=== PATIENT | female | born 1990 | race American Indian/Alaskan Native ===

== ENCOUNTER 2016-10-13 17:51 | Emergency (ER) | payer BC ==
[2016-10-13 18:24] VITALS: BMI 24.9
[2016-10-13 18:31] VITALS: O2SAT 100
[2016-10-13] MEDS ORDERED: Sodium Chloride 0.9% 1,000 ML IV ONE ×2 (19:31→19:32)
--- NOTE | 2016-10-13 19:32 | C.PDOC ---
History Of Present Illness 25 year old female who presents to the ER with a complaint of abdominal pain, nausea, and vomiting over the past week. Patient is currently 12 weeks ; she reports a Hx of abdominal surgery for an acute obstruction. Denies diarrhea, dysuria, or vaginal bleeding. Chief Complaint (Nursing): Dizziness/Lightheaded History Per: Patient History/Exam Limitations: no limitations Onset/Duration Of Symptoms: Days Current Symptoms Are (Timing): Still Present Activity At Onset Of Symptoms: Other (Not known) Seizure Or Post-ictal Symptoms: None Fall Associated With With Symptoms: No Recent travel outside of the [place]: No Past Medical History Reviewed: Historical Data, Nursing Documentation, Vital Signs Vital Signs: Last Vital Signs Temp 98.1 F 10/13/16 19:40 Pulse 86 10/13/16 19:40 Resp 18 10/13/16 19:40 BP 116/78 10/13/16 19:40 Pulse Ox 100 10/13/16 22:52 - Medical History PMH: No Chronic Diseases - [facility] Procedures OTH LYSIS-PERITONEAL ADHES (09/03/13) OTHER HERNIA REPAIR (09/03/13) Family History: States: Unknown Family Hx - Social History Hx Tobacco Use: No Hx Alcohol Use: No Hx Substance Use: No - Immunization History Hx Influenza Vaccination: No Hx Pneumococcal Vaccination: No Review Of Systems Constitutional: Negative for: Fever, Chills Gastrointestinal: Positive for: Nausea, Vomiting, Abdominal Pain. Negative for : Diarrhea Genitourinary: Negative for: Dysuria, Hematuria, Vaginal Bleeding Physical Exam - Physical Exam Appears: Non-toxic, No Acute Distress Skin: Normal Color, Warm, Dry Head: Atraumatic, Normacephalic Oral Mucosa: Moist Chest: Symmetrical, No Tenderness Cardiovascular: Rhythm Regular, No Murmur Respiratory: Normal Breath Sounds, No Rales, No Rhonchi, No Wheezing Gastrointestinal/Abdominal: Soft, Tenderness (To mid and LLQ area), No Guarding , No Rebound Neurological/Psych: Oriented x3, Normal Speech, Normal Cognition ED Course And Treatment - Laboratory Results Result Diagrams: 10/13/16 20:16 10/13/16 20:16 O2 Sat by Pulse Oximetry: 100 (Room air) Pulse Ox Interpretation: Normal - CT Scan/US Abdominal US Other Rad Studies (CT/US): Read By Radiologist, Radiology Report Reviewed CT/US Interpretation: EXAM: US Abdomen Complete. CLINICAL HISTORY: 25 years old, female; Pain; Abdominal pain; ; Additional info: Abd pain. TECHNIQUE: Real-time ultrasound of the abdomen (complete) with image documentation. EXAM DATE/TIME: Exam ordered 10/13/2016 7:28 PM. COMPARISON: No relevant prior studies available. FINDINGS: Liver: Equivocal fatty liver. No intrahepatic bile duct dilation. No definite mass. Gallbladder: Unremarkable. No gallstones. Common bile duct: Unremarkable as visualized. No stones. No dilation. Pancreas: Unremarkable as visualized. Kidneys: Unremarkable. No stones. No solid mass. No hydronephrosis. Spleen: Spleen is normal. Probable splenule adjacent to the left kidney could be compared with. prior imaging when available. Aorta: Unremarkable. No aneurysm. Inferior vena cava: Unremarkable. IMPRESSION: No acute findings Pelvic US Other Rad Studies (CT/US): Read By Radiologist, Radiology Report Reviewed CT/US Interpretation: EXAM: US Uterus, Limited. CLINICAL HISTORY: 25 years old, female; Pain; complicated by abdominal or pelvic pain; Generalized. abdominal pain; First trimester; Gestational age or lmp: [id number] ; ; Additional info: Abd. pain. TECHNIQUE: Real-time ultrasound of the maternal uterus (limited) with image documentation. EXAM DATE/TIME : Exam ordered 10/13/2016 7:28 PM. COMPARISON: No relevant prior studies available. FINDINGS: Fetus: An intrauterine is identified of approximately 12 weeks and 0 day gestation. Heart. rate 131 beats minute was documented. The crown-rump length is 5.3 cm. Position: Variable positioning of the fetus. Placenta: Posterior low-lying placenta. Cervix: Closed cervix measures 3.7 cm. Free fluid: Minimal free fluid is noted in the pelvis. IMPRESSION: An intrauterine is identified of approximately 12 weeks and 0 day gestation. Heart rate. 131 beats minute was documented. The crown- rump length is 5.3 cm. Progress Note: Blood work, urinalysis, abd US, and pelvic US. Zofran and IV fluids ordered. Disposition Counseled Patient/Family Regarding: Diagnosis - Disposition Referrals: [facility] [Outside] Disposition: HOME/ ROUTINE Disposition Time: 22:50 Condition: STABLE Prescriptions: Ondansetron ODT [Zofran ODT] 4 mg PO BID #7 odt Instructions: Hyperemesis Gravidarum (ED) Forms: [facility] (Liberian) - POA Present On Arrival: None - Clinical Impression Clinical Impression: Vomiting affecting - Scribe Statement The provider has reviewed the documentation as recorded by the Scribalvaro Ricketts All medical record entries made by the Scribe were at my direction and personally dictated by me. I have reviewed the chart and agree that the record accurately reflects my personal performance of the history, physical exam, medical decision making, and the department course for this patient. I have also personally directed, reviewed, and agree with the discharge instructions and disposition.
[2016-10-13 20:27] LABS: BASO % 0.4 % (0.0-2.0); EOS # 0.1 K/uL (0.0-0.7); HEMATOCRIT 31.5 % (34.0-47.0); LYMPH # 2.2 K/uL (1.0-4.3); LYMPH % 38.3 % (20.0-40.0); MEAN CORPUSCULAR HEMOGLOBIN 29.4 pg (27.0-31.0); MEAN CORPUSCULAR HGB CONC 33.9 g/dL (33.0-37.0); MEAN PLATELET VOLUME 8.7 fL (7.2-11.7); MONO # 0.4 K/uL (0.0-0.8); MONO % 6.5 % (0.0-10.0); RED CELL DISTRIBUTION WIDTH 12.5 % (11.5-14.5); WHITE BLOOD COUNT 5.8 K/uL (4.8-10.8)
[2016-10-13 20:31] LABS: MEAN CELL VOLUME 86.6 fL (81.0-99.0)
[2016-10-13 20:40] LABS: CHLORIDE 102 mmol/L (98-107)
[2016-10-13 20:41] LABS: POTASSIUM 3.6 mmol/L (3.6-5.2); SODIUM 134 mmol/L (132-148)
[2016-10-13 20:43] LABS: AST/SGOT 23 U/L (14-36); BILIRUBIN,TOTAL 0.4 mg/dL (0.2-1.3); CARBON DIOXIDE 20 mmol/L (22-30); GFR AFRICAN-AMERICAN > 60; TOTAL PROTEIN 6.8 g/dL (6.3-8.3)
[2016-10-13 20:44] LABS: ALKALINE PHOSPHATASE 52 U/L (38-126); ALT/SGPT 28 U/L (9-52); BLOOD UREA NITROGEN 7 mg/dL (7-17); CALCIUM 8.7 mg/dl (8.6-10.4); GLUCOSE,RANDOM 75 mg/dL (65-105)
[2016-10-13 22:39] LABS: RBC URINE 1 /hpf (0-3); URINE BACTERIA RARE (<OCC); URINE BILIRUBIN NEGATIVE (NEGATIVE); URINE BLOOD NEGATIVE (NEGATIVE); URINE COLOR Yellow (YELLOW); URINE GLUCOSE (UA) NORMAL (Normal); URINE KETONE 2+ mg/dL (NEGATIVE); URINE LEUKOCYTE ESTERASE NEG Leu/uL (Negative); URINE PROTEIN NEGATIVE (NEGATIVE); WBC URINE 3 /hpf (0-5)
[2016-10-13 23:05] VITALS: BP 105/51; PULSE 82; RESP 16; TEMP 98.3
--- NOTE | 2016-10-14 08:30 | US ---
HISTORY: Abdominal pain COMPARISON: CT abdomen and pelvis from 09/03/2013. TECHNIQUE: Grayscale imaging was performed. FINDINGS: LIVER: Measures 13.5 cm. There is diffuse increased echogenicity of the liver parenchyma. No mass. No intrahepatic bile duct dilatation. GALLBLADDER: Unremarkable. No gallstones. COMMON BILE DUCT: Measures 3.1 mm. No stones. No dilatation. PANCREAS: Unremarkable as visualized. No mass. No ductal dilatation. RIGHT KIDNEY: Measures 9.8cm. Normal echogenicity. No calculus, mass, or hydronephrosis. LEFT KIDNEY: Measures 9.8cm. Normal echogenicity. No calculus, mass, or hydronephrosis. SPLEEN: Normal in size and contour. No mass.There is a 1.5 cm splenule. AORTA: No aneurysmal dilatation. IVC: Unremarkable. OTHER FINDINGS: None. IMPRESSION: No cholelithiasis or biliary dilatation. Hepatic steatosis. A preliminary report was provided by [facility].
--- NOTE | 2016-10-14 08:32 | US ---
PROCEDURE: OB Pelvic Ultrasound HISTORY: Abdominal pain COMPARISON: None available. FINDINGS: UTERUS: Gestational sac: Single intrauterine gestation. Heart rate: 131 bpm. age (Ultrasound estimated): 12 weeks and 0 days Amna-gestational hemorrhage: None. Date of delivery (Ultrasound estimated) : 04/27/2017 Uterus measures 12.4 x 6.1 x 10.6 cm. Normal in size and appearance. CERVIX: Long and closed. No cervical abnormality seen. RIGHT OVARY: Measures 4.0 x 2.3 x 3.7 cm. No mass lesion. Normal flow. LEFT OVARY: Measures 4.0 x 2.0 x 2.7 cm. No solid mass. Normal flow. FREE FLUID: There is minimal free fluid in the pelvis. OTHER FINDINGS: None. IMPRESSION: Single live intrauterine gestation with mean gestational age of 12 weeks and 0 days. The estimated date of delivery by ultrasound is 04/27/2017. The ultrasound dates correspond with the clinical dates. A preliminary report was provided by [facility].
== END 2016-10-13 23:03 | disposition home or self-care (01) ==
LOC: C.ER 17:51
DX: O21.9 Vomiting of pregnancy, unspecified (principal); Z3A.12 12 weeks gestation of pregnancy

== ENCOUNTER 2017-03-01 13:03 | Emergency (ER) | payer BC ==
[2017-03-01] MEDS ORDERED: Lactated Ringer's 1,000 ML IV ONE (13:33)
[2017-03-01 14:57] LABS: BASO % 0.1 % (0.0-2.0); EOS % 0.2 % (0.0-4.0); HEMATOCRIT 35.6 % (34.0-47.0); LYMPH % 13.2 % (20.0-40.0); MEAN CORPUSCULAR HEMOGLOBIN 29.3 pg (27.0-31.0); MEAN CORPUSCULAR HGB CONC 32.1 g/dL (33.0-37.0); MEAN PLATELET VOLUME 8.3 fL (7.2-11.7); MONO # 0.2 K/uL (0.0-0.8); MONO % 3.2 % (0.0-10.0); RED CELL DISTRIBUTION WIDTH 13.5 % (11.5-14.5); WHITE BLOOD COUNT 7.2 K/uL (4.8-10.8)
[2017-03-01 14:58] LABS: MEAN CELL VOLUME 91.3 fL (81.0-99.0)
[2017-03-01 15:03] LABS: RBC URINE 3 /hpf (0-3); URINE BILIRUBIN NEGATIVE (NEGATIVE); URINE BLOOD NEGATIVE (NEGATIVE); URINE COLOR Yellow (YELLOW); URINE GLUCOSE (UA) NORMAL (Normal); URINE KETONE 2+ mg/dL (NEGATIVE); URINE LEUKOCYTE ESTERASE NEG Leu/uL (Negative); URINE PROTEIN NEGATIVE (NEGATIVE); WBC URINE 2 /hpf (0-5)
[2017-03-01 15:16] LABS: ALKALINE PHOSPHATASE 79 U/L (38-126); ALT/SGPT 42 U/L (9-52); AMYLASE 127 U/L (30-110); AST/SGOT 40 U/L (14-36); BILIRUBIN,TOTAL 0.6 mg/dL (0.2-1.3); BLOOD UREA NITROGEN 9 mg/dL (7-17); CALCIUM 8.2 mg/dl (8.6-10.4); CARBON DIOXIDE 17 mmol/L (22-30); CHLORIDE 106 mmol/L (98-107); GFR AFRICAN-AMERICAN > 60; GLUCOSE,RANDOM 64 mg/dL (65-105); POTASSIUM 3.7 mmol/L (3.6-5.2); SODIUM 132 mmol/L (132-148); TOTAL PROTEIN 6.5 g/dL (6.3-8.3)
[2017-03-01 15:19] LABS: ALB/GLOB RATIO 1.1 (1.0-2.1)
--- NOTE | 2017-03-01 21:55 | OBHP ---
Datetime: 03/01/2017 13:21 IP Adm Impression: , intrauterine IP Chief Complaint Other: Vomiting and Diarrhea IP Admit Plan: Discharge home Admit Comment, IP Provider: Patient is a 26 year old at 32w0d TEJINDER 04/26/17 (per the patient) p resents to [facility] for NBNB vomiting and diarrhea. Patient states that she had 3 episodes of vomiting that started last night. Last episode was at approx 2am. Also states that diarrhea started this morn ing. Symptoms are associated with occasional lower abdominal pain that is sharp in nature. Offers no other complaints. Endorses +FM, denies CTX, VB, LOF. Denies fevers, chills, headaches, dizziness, cp, palpitations, urinary symptoms, recent sick contacts. Issues: GDMA1 - diet controlled OB Hx: 1. 2012 EAB 2. 2014 EAB 3. Current [employer] Hx: LMP - unsure [facility] - 11 x regular x 4 days Denies fibroids, ovarian cysts, STIs Denies hx of abnormal pap smears Allergies: NKDA Medications: PNV Medical Hx: Denies Surgical Hx: Laparotomy for SBO in 2013, D+C x 2 Social Hx: Denies alcohol, tobacco, drugs use; lives with boyfriend, works for [employer] service Family Hx: Non-contributory PE: See above A/P: 26 year old at 32w0d presents with vomiting/diarrhea/abdominal pain -Stable, afebrile -CEFM and TOCO -Labs : CBC, CMP, amylase, lipase, UA -LR bolus -Continue to monitor -Discussed with attending Mili Pulido DO PGY-1 OB Addendum: Labs reviewed. Patient feeling better. No longer feeling nauseous. Advised to increas e PO hydration. labor precautions given. Patient to follow up with OB within 1 week. Plan dis cussed with attending [facility]HR - Baseline A Provider: 135 Comments, ACOG Physical Exam: VSS Gen: AAOx3 CV: RRR Lungs: CTA B/L Abd: Soft, gravid, NTTP Ext: No clubbing, cyanosis, edema; no calf tenderness SVE: Pt declined Vital Signs Provider: Reviewed; Within Normal Limits IP Chief Complaint: Other NICHD Variability Prov Fetus A: Moderate 6-25bpm NICHD Accel Fetus A IP Provider: 10X10 FHR Category Provider Fetus A: Category I NICHD Decel Fetus A IP Provider: None
[2017-03-01 23:18] VITALS: BP 100/70; PULSE 99
== END 2017-03-01 17:50 | disposition home or self-care (01) ==
LOC: C.EROB 13:03
DX: O21.2 Late vomiting of pregnancy (principal); Z3A.32 32 weeks gestation of pregnancy; O26.893 Other specified pregnancy related conditions, third trimester; R10.30 Lower abdominal pain, unspecified; R19.7 Diarrhea, unspecified
CPT/HCPCS: 80053; 81001; 82150; 82948; 83690; 85025; 99283; J7120